=== PATIENT | female | born 1940 ===

== ENCOUNTER 2019-03-26 04:09 | Inpatient (IN) ==
[2019-03-26] MEDS ORDERED: ONDANSETRON 4 MG/2 ML VIAL ONE (04:41)
[2019-03-26] MEDS ORDERED: ONDANSETRON 4 MG/2 ML VIAL IV STA (04:43)
[2019-03-26 05:06] LABS: PT Patient Result 11.1 SECS (9.6-12.2)
[2019-03-26 05:12] LABS: Alanine Aminotransferase 21 U/L (13-56); Albumin 3.3 G/DL (3.4-5.0); Alkaline Phosphatase 84 U/L (45-117); Aspartate Amino Transferase 19 U/L (0-37); Bilirubin,Total < 0.39 MG/DL (0.2-1.0); Blood Urea Nitrogen 25 MG/DL (7-18); Calcium 7.9 MG/DL (8.5-10.1); Estimated Glom Filtration Rate 35 ML/MIN; Glucose 169 MG/DL (74-106); Total Protein 7.6 G/DL (6.4-8.3)
[2019-03-26 05:19] LABS: Basophils % 0.5 % (0.0-0.8); Eosinophils # 0.1 10*3/uL (0.0-0.87); Eosinophils % 0.9 % (0.00-10.9); Hemoglobin 10.4 GM/DL (12.0-16.0); Immature Granulocytes % 0.8 %; Immature Granulocytes Absolute 0.05 #; Lymphocytes # 0.8 10*3/uL (1.4-4.0); Lymphocytes % 12.6 % (21.3-54.2); Mean Corpuscular HGB Conc 32.5 GM/DL (32-36); Mean Corpuscular Volume 89.1 FL (87-102); Monocytes % 6.4 % (1.7-12.7); Neutrophils % 78.8 % (38.7-73.9); Red Blood Count 3.59 MC/CUMM (3.8-5.5); Red Cell Distribution Width 13.5 % (9.3-17.3); White Blood Count 6.6 T/CUMM (4-12)
[2019-03-26 05:26] LABS: Platelet Count 0 T/CUMM (130-400)
[2019-03-26 05:42] LABS: Platelet Estimate Decreased
[2019-03-26 05:43] LABS: Hypochromasia Slight
[2019-03-26] MEDS ORDERED: ONDANSETRON 4 MG/2 ML VIAL IV PRN (07:52)
[2019-03-26] MEDS ORDERED: LACTULOSE 20 GM/30 ML UDCUP PO PRN (07:52)
[2019-03-26] MEDS ORDERED: ACETAMINOPHEN 325 MG TABLET PO PRN (07:52)
[2019-03-26] MEDS ORDERED: SODIUM CHLORIDE 0.9% 1,000 ML IV PRN (07:56)
[2019-03-26 08:38] LABS: Risk Ratio 3.64; Thyroid Stimulating Hormone 3.78 uIU/ml (0.358-3.74); VLDL CHOLESTEROL 22.2 MG/DL
[2019-03-26] MEDS: SODIUM CHLORIDE 0.9% 1,000 ML IV SCH ×2 (09:42→22:44)
[2019-03-26] MEDS: PANTOPRAZOLE 40 MG VIAL IV SCH (09:42)
[2019-03-26] MEDS: predniSONE 20 MG TABLET PO SCH (09:45)
[2019-03-26 10:08] LABS: Folate 13.8 NG/ML (5.4-24.0)
[2019-03-26 12:17] LABS: Basophils % 0.3 % (0.0-0.8); Eosinophils # 0.1 10*3/uL (0.0-0.87); Eosinophils % 0.8 % (0.00-10.9); Hematocrit 32.6 VOL% (35.7-47.0); Hemoglobin 10.5 GM/DL (12.0-16.0); Immature Granulocytes % 0.8 %; Immature Granulocytes Absolute 0.05 #; Lymphocytes # 0.8 10*3/uL (1.4-4.0); Lymphocytes % 11.7 % (21.3-54.2); Mean Corpuscular HGB Conc 32.2 GM/DL (32-36); Mean Corpuscular Volume 90.3 FL (87-102); Mean Platelet Volume 10.1 FL (9.6-12.0); Neutrophils % 83.4 % (38.7-73.9); Red Blood Count 3.61 MC/CUMM (3.8-5.5); Red Cell Distribution Width 13.6 % (9.3-17.3); White Blood Count 6.6 T/CUMM (4-12)
[2019-03-26 12:21] LABS: Platelet Count 24 T/CUMM (130-400)
[2019-03-26 12:36] LABS: Platelet Estimate Decreased
[2019-03-26 12:37] LABS: Anisocytosis 2+
[2019-03-26 14:35] LABS: Apearance,Urine CLEAR (Clear); Bilirubin,Urine Negative (Negative); Blood, Urine Small mg/dL (Negative); Glucose,Urine (UA) Negative (Negative); Ketones,Urine Negative (Negative); Nitrite,Urine Negative (Negative); Protein,Urine 30 MG/DL; RBC,Urine 1 /HPF (0-4); Squamous Epithelial Cell,Urine Occasional /HPF (0-10); Urine Color Colorless (Yellow); Urine Specific Gravity 1.019 (1.001-1.035); Urine Urobilinogen < 2.0 EU/DL (0.2-1.0); WBC,Urine 1 /HPF (0-6)
[2019-03-26 17:34] LABS: Basophils % 0.2 % (0.0-0.8); Hematocrit 29.8 VOL% (35.7-47.0); Hemoglobin 9.8 GM/DL (12.0-16.0); Immature Granulocytes % 2.2 %; Immature Granulocytes Absolute 0.11 #; Lymphocytes # 0.4 10*3/uL (1.4-4.0); Lymphocytes % 8.7 % (21.3-54.2); Mean Corpuscular HGB Conc 32.9 GM/DL (32-36); Mean Corpuscular Volume 92.5 FL (87-102); Neutrophils % 87.9 % (38.7-73.9); Platelet Count 49 T/CUMM (130-400); Red Blood Count 3.22 MC/CUMM (3.8-5.5); Red Cell Distribution Width 13.6 % (9.3-17.3); White Blood Count 5.1 T/CUMM (4-12)
[2019-03-26 19:05] LABS: HIV Antigen/Antibody Result Nonreactive (Nonreactive); Hepatitis B Core IgM Quant < 0.05 Index; Hepatitis B Surface Ag Quant < 0.10 Index; Hepatitis B Surface Ag Result Negative (Negative); Hepatitis C Virus Ab Quant 0.16 Index; Hepatitis C Virus Ab Result Negative (Negative)
[2019-03-27 05:30] LABS: Basophils % 0.3 % (0.0-0.8); Eosinophils % 0.2 % (0.00-10.9); Hematocrit 27.6 VOL% (35.7-47.0); Hemoglobin 9.1 GM/DL (12.0-16.0); Immature Granulocytes % 0.9 %; Immature Granulocytes Absolute 0.05 #; Lymphocytes % 17.9 % (21.3-54.2); Mean Corpuscular Volume 88.5 FL (87-102); Monocytes % 7.9 % (1.7-12.7); Neutrophils % 72.8 % (38.7-73.9); Red Blood Count 3.12 MC/CUMM (3.8-5.5); Red Cell Distribution Width 13.4 % (9.3-17.3); White Blood Count 5.8 T/CUMM (4-12)
[2019-03-27 05:38] LABS: Calcium 8.3 MG/DL (8.5-10.1); Osmolality,Calculated 280.5 MOS/KG (273-304)
[2019-03-27 05:42] LABS: Platelet Count 10 T/CUMM (130-400)
[2019-03-27 05:49] LABS: Hypochromasia 1+
[2019-03-27 05:50] LABS: Platelet Estimate Decreased; Total Protein 7.2 G/DL (6.4-8.3)
[2019-03-27] MEDS: predniSONE 20 MG TABLET PO SCH (08:52)
[2019-03-27] MEDS: PANTOPRAZOLE 40 MG VIAL IV SCH (08:55)
[2019-03-27] MEDS ORDERED: diphenhydrAMINE CAP 25 MG CAPSULE PO ONE (09:09)
[2019-03-27] MEDS ORDERED: ACETAMINOPHEN 500 MG TABLET PO ONE (09:09)
[2019-03-27] MEDS ORDERED: IMMUNE GLOBULIN 10% 40 GM in PREMIX 1 EACH IV ONE (09:45)
[2019-03-27 10:02] LABS: Immunoglobulin A (Chem) 246 MG/DL (70-400); Immunoglobulin G (Chem) 1350 MG/DL (700-1600); Immunoglobulin M (Chem) 74 MG/DL (40-230); Total Protein (Chem) 7.2 G/DL (6.4-8.3)
[2019-03-27 11:36] LABS: Albumin (SPE) 4.1 G/DL (3.2-5.3); Albumin (SPE) Rel % 57.6 %; Alpha 1 (SPE) 0.2 G/DL (0.1-0.4); Alpha 1 (SPE) Rel % 2.5 %; Alpha 2 (SPE) 0.8 G/DL (0.4-1.0); Alpha 2 (SPE) Rel % 11.5 %; Beta (SPE) 0.8 G/DL (0.5-1.1); Beta (SPE) Rel % 10.6 %; Gamma (SPE) 1.3 G/DL (0.7-1.7); Gamma (SPE) Rel % 17.8 %
[2019-03-27] MEDS ORDERED: LABETALOL 20 MG/4 ML SYRINGE IV ONE (12:04)
[2019-03-27] MEDS: MONTELUKAST 10 MG TABLET PO SCH (17:17)
[2019-03-27] MEDS: amLODIPine 5 MG TABLET PO SCH (17:17)
[2019-03-27] MEDS: CHLORTHALIDONE 25 MG TABLET PO SCH (17:18)
[2019-03-27] MEDS: SODIUM CHLORIDE 0.9% 1,000 ML IV SCH (19:40)
[2019-03-28] MEDS: SODIUM CHLORIDE 0.9% 1,000 ML IV SCH (02:23)
[2019-03-28 05:34] LABS: Basophils % 0.1 % (0.0-0.8); Hematocrit 28.6 VOL% (35.7-47.0); Hemoglobin 9.6 GM/DL (12.0-16.0); Immature Granulocytes % 1.7 %; Immature Granulocytes Absolute 0.12 #; Lymphocytes # 0.9 10*3/uL (1.4-4.0); Lymphocytes % 12.3 % (21.3-54.2); Mean Corpuscular HGB Conc 33.6 GM/DL (32-36); Mean Corpuscular Volume 87.5 FL (87-102); Mean Platelet Volume 12.8 FL (9.6-12.0); Monocytes % 5.4 % (1.7-12.7); Neutrophils % 80.5 % (38.7-73.9); Red Blood Count 3.27 MC/CUMM (3.8-5.5); Red Cell Distribution Width 13.1 % (9.3-17.3); White Blood Count 7.1 T/CUMM (4-12)
[2019-03-28 05:36] LABS: Platelet Count 31 T/CUMM (130-400)
[2019-03-28 05:47] LABS: Calcium 8.6 MG/DL (8.5-10.1); Osmolality,Calculated 283.7 MOS/KG (273-304)
[2019-03-28] MEDS ORDERED: MAGNESIUM SULF RIDER 2 GM in PREMIX 1 EACH IV PRN (07:08)
[2019-03-28] MEDS ORDERED: MAGNESIUM SULF RIDER 4 GM in PREMIX 1 EACH IV PRN (07:08)
[2019-03-28] MEDS: PANTOPRAZOLE 40 MG VIAL IV SCH (09:13)
[2019-03-28] MEDS: MONTELUKAST 10 MG TABLET PO SCH (09:14)
[2019-03-28] MEDS: CHLORTHALIDONE 25 MG TABLET PO SCH (09:14)
[2019-03-28] MEDS: amLODIPine 5 MG TABLET PO SCH (09:14)
[2019-03-28] MEDS: predniSONE 20 MG TABLET PO SCH (09:14)
[2019-03-28] MEDS ORDERED: amLODIPine 10 MG TABLET PO SCH (11:47)
[2019-03-28] MEDS ORDERED: amLODIPine 5 MG TABLET PO ONE (11:47)
[2019-03-28 14:16] VITALS: BP 204/88
[2019-03-29 12:25] LABS: Immuno Free Light Chain Kappa 5.55 MG/DL (0.33-1.94); Immuno Free Light Chain Lambda 3.05 MG/DL (0.57-2.63); Immuno Free Light Chain Ratio 1.82 MG/DL (0.26-1.65)
== END 2019-03-28 16:10 | disposition home or self-care (01) | DRG 813 ==
LOC: EDUNIT# → EDBD → N.ED 04:09 → N.EDINP 07:52 → N.4E 08:33
PROVIDERS: ADMIT Internal Medicine; ATTEND Internal Medicine

== ENCOUNTER 2020-05-23 23:02 | Inpatient (IN) ==
[2020-05-24 00:24] LABS: Basophils % 0.4 % (0.0-0.8); Eosinophils # 0.2 10*3/uL (0.0-0.87); Eosinophils % 2.1 % (0.00-10.9); Hemoglobin 10.6 GM/DL (12.0-16.0); Immature Granulocytes % 0.7 %; Immature Granulocytes Absolute 0.06 #; Lymphocytes # 1.4 10*3/uL (1.4-4.0); Lymphocytes % 16.7 % (21.3-54.2); Mean Corpuscular HGB Conc 32.1 GM/DL (32-36); Mean Corpuscular Volume 88.5 FL (87-102); Monocytes % 7.9 % (1.7-12.7); Neutrophils % 72.2 % (38.7-73.9); Red Blood Count 3.73 MC/CUMM (3.8-5.5); Red Cell Distribution Width 13.9 % (9.3-17.3); White Blood Count 8.2 T/CUMM (4-12)
[2020-05-24 00:29] LABS: Platelet Count 1 T/CUMM (130-400)
[2020-05-24 00:35] LABS: Partial Thromboplastin Time 28.5 SECS (23.9-33.8)
[2020-05-24] MEDS ORDERED: predniSONE 20 MG TABLET PO STA (00:47)
[2020-05-24 00:55] LABS: Alanine Aminotransferase 17 U/L (13-56); Albumin 3.7 G/DL (3.4-5.0); Alkaline Phosphatase 96 U/L (45-117); Aspartate Amino Transferase 13 U/L (0-37); Bilirubin,Total < 0.39 MG/DL (0.2-1.0); Blood Urea Nitrogen 54 MG/DL (7-18); Calcium 8.9 MG/DL (8.5-10.1); Carbon Dioxide 21 MMOL/L (21-32); Estimated Glom Filtration Rate 24 ML/MIN; Glucose 125 MG/DL (74-106); Osmolality,Calculated 285.1 MOS/KG (273-304); Potassium 3.8 MMOL/L (3.5-5.1); Sodium 135 MMOL/L (136-145); Total Protein 8.1 G/DL (6.4-8.3)
[2020-05-24] MEDS ORDERED: SODIUM CHLORIDE 0.9% 1,000 ML IV STA (01:01)
[2020-05-24] MEDS ORDERED: hydrALAZINE 20 MG/1 ML VIAL IV STA (01:02)
[2020-05-24] MEDS ORDERED: IMMUNE GLOBULIN 10% 20 GM, IMMUNE GLOBULIN 10% 5 GM in PREMIX 1 EACH IV ONE (01:15)
[2020-05-24] MEDS ORDERED: hydrALAZINE 20 MG/1 ML VIAL IV PRN (01:49)
[2020-05-24] MEDS ORDERED: ACETAMINOPHEN 325 MG TABLET PO PRN (01:49)
[2020-05-24] MEDS ORDERED: DEXTROSE 50% 25 GM/50 ML VIAL IV PRN (01:49)
[2020-05-24] MEDS ORDERED: GLUCAGON 1 MG VIAL IM PRN (01:49)
[2020-05-24] MEDS ORDERED: ONDANSETRON 4 MG/2 ML VIAL IV PRN (01:49)
[2020-05-24] MEDS ORDERED: SODIUM CHLORIDE 0.9% 1,000 ML IV PRN ×2 (01:53→08:00)
[2020-05-24 06:07] LABS: Basophils % 0.4 % (0.0-0.8); Eosinophils % 0.2 % (0.00-10.9); Hematocrit 29.6 VOL% (35.7-47.0); Hemoglobin 9.6 GM/DL (12.0-16.0); Immature Granulocytes % 0.6 %; Immature Granulocytes Absolute 0.03 #; Lymphocytes # 0.6 10*3/uL (1.4-4.0); Lymphocytes % 11.9 % (21.3-54.2); Mean Corpuscular HGB Conc 32.4 GM/DL (32-36); Mean Corpuscular Volume 88.6 FL (87-102); Monocytes % 2.8 % (1.7-12.7); Neutrophils % 84.1 % (38.7-73.9); Red Blood Count 3.34 MC/CUMM (3.8-5.5); Red Cell Distribution Width 13.7 % (9.3-17.3); White Blood Count 5.1 T/CUMM (4-12)
[2020-05-24 06:10] LABS: Platelet Count 0 T/CUMM (130-400)
[2020-05-24 06:33] LABS: Alanine Aminotransferase 16 U/L (13-56); Albumin 3.3 G/DL (3.4-5.0); Alkaline Phosphatase 87 U/L (45-117); Aspartate Amino Transferase 12 U/L (0-37); Bilirubin,Total < 0.39 MG/DL (0.2-1.0); Blood Urea Nitrogen 49 MG/DL (7-18); Calcium 8.6 MG/DL (8.5-10.1); Carbon Dioxide 19 MMOL/L (21-32); Estimated Glom Filtration Rate 31 ML/MIN; Glucose 137 MG/DL (74-106); Osmolality,Calculated 289.7 MOS/KG (273-304); Sodium 138 MMOL/L (136-145); Total Protein 7.5 G/DL (6.4-8.3)
[2020-05-24] MEDS ORDERED: predniSONE 20 MG TABLET PO SCH (09:00)
[2020-05-24] MEDS: PANTOPRAZOLE 40 MG TABLET PO SCH (11:08)
[2020-05-24] MEDS: amLODIPine 5 MG TABLET PO SCH (11:08)
[2020-05-24] MEDS: predniSONE 20 MG TABLET PO SCH (11:08)
[2020-05-25 05:30] LABS: Hematocrit 28.3 VOL% (35.7-47.0); Hemoglobin 9.3 GM/DL (12.0-16.0); Immature Granulocytes % 1.6 %; Immature Granulocytes Absolute 0.07 #; Lymphocytes # 0.6 10*3/uL (1.4-4.0); Lymphocytes % 12.4 % (21.3-54.2); Mean Corpuscular HGB Conc 32.9 GM/DL (32-36); Mean Corpuscular Volume 87.9 FL (87-102); Mean Platelet Volume 12.9 FL (9.6-12.0); Monocytes % 2.3 % (1.7-12.7); Neutrophils % 83.7 % (38.7-73.9); Red Blood Count 3.22 MC/CUMM (3.8-5.5); Red Cell Distribution Width 13.6 % (9.3-17.3); White Blood Count 4.4 T/CUMM (4-12)
[2020-05-25 05:38] LABS: Platelet Count 21 T/CUMM (130-400)
[2020-05-25 05:52] LABS: Hypochromasia 1+; Microcytosis 1+; Platelet Estimate Decreased
[2020-05-25 06:02] LABS: Albumin 3.1 G/DL (3.4-5.0); Bilirubin,Total 0.4 MG/DL (0.2-1.0); Calcium 9.3 MG/DL (8.5-10.1); Osmolality,Calculated 288.5 MOS/KG (273-304); Potassium 3.8 MMOL/L (3.5-5.1)
[2020-05-25] MEDS ORDERED: NON-FORMULARY MEDICATION (Omeprazole 20 mg Capsule,Delayed Release(Dr/Ec)) PO SCH (09:00)
[2020-05-25] MEDS: predniSONE 20 MG TABLET PO SCH (09:39)
[2020-05-25] MEDS: amLODIPine 5 MG TABLET PO SCH (09:40)
[2020-05-25] MEDS: MONTELUKAST 10 MG TABLET PO SCH (09:40)
[2020-05-25] MEDS: PANTOPRAZOLE 40 MG TABLET PO SCH (09:41)
[2020-05-25] MEDS ORDERED: ACETAMINOPHEN 500 MG TABLET PO ONE (10:30)
[2020-05-25] MEDS ORDERED: IMMUNE GLOBULIN 10% 40 GM in PREMIX 1 EACH IV ONE (10:30)
[2020-05-25] MEDS ORDERED: diphenhydrAMINE 50 MG/1 ML VIAL IV ONE (10:31)
[2020-05-25] MEDS ORDERED: FAMOTIDINE 20 MG/2 ML VIAL IV ONE (10:31)
[2020-05-25] MEDS ORDERED: DEXAMETHASONE INJ 10 MG in SODIUM CHLORIDE 0.9% 50 ML IV ONE (10:32)
[2020-05-25] MEDS ORDERED: FAMOTIDINE INJ 40 MG in SODIUM CHLORIDE 0.9% 100 ML IV ONE (11:00)
[2020-05-25] MEDS ORDERED: RITUXIMAB ABBS IV ONE (12:30)
[2020-05-25] MEDS ORDERED: SODIUM CHLORIDE 0.9% IV ONE (12:30)
[2020-05-25] MEDS ORDERED: amLODIPine 10 MG TABLET PO SCH (16:06)
[2020-05-26 04:16] LABS: Hematocrit 27.4 VOL% (35.7-47.0); Hemoglobin 9.1 GM/DL (12.0-16.0); Immature Granulocytes % 1.3 %; Lymphocytes # 0.5 10*3/uL (1.4-4.0); Lymphocytes % 6.6 % (21.3-54.2); Mean Corpuscular HGB Conc 33.2 GM/DL (32-36); Mean Corpuscular Volume 87.3 FL (87-102); Mean Platelet Volume 12.4 FL (9.6-12.0); Monocytes % 4.4 % (1.7-12.7); Neutrophils % 87.7 % (38.7-73.9); Platelet Count 55 T/CUMM (130-400); Red Blood Count 3.14 MC/CUMM (3.8-5.5); Red Cell Distribution Width 13.6 % (9.3-17.3)
[2020-05-26 04:40] LABS: Hypochromasia 1+; Microcytosis 1+; Platelet Estimate Decreased
[2020-05-26] MEDS: PANTOPRAZOLE 40 MG TABLET PO SCH (08:48)
[2020-05-26] MEDS: predniSONE 20 MG TABLET PO SCH (08:48)
[2020-05-26] MEDS: MONTELUKAST 10 MG TABLET PO SCH (08:49)
[2020-05-26 11:59] VITALS: BP 140/82
== END 2020-05-26 12:07 | disposition home or self-care (01) | DRG 813 ==
LOC: N.ED 23:02 → N.EDINP 05-24 01:49 → N.3E 05-24 03:24 → N.4E 05-25 10:42
PROVIDERS: ADMIT Emergency Medicine; ATTEND Emergency Medicine